=== PATIENT | female | born 2000 | race Two or more races ===

== ENCOUNTER 2023-09-05 10:13 | Emergency (ER) | payer MEDICAID ==
[~2023-09-05] VITALS: Ht 160 cm; Wt 54.7 kg
[2023-09-05 12:52] VITALS: BP 138/80; PULSE 80; RESP 16; TEMP 98.2; O2SAT 99
== END 2023-09-05 12:59 | disposition home or self-care (01) ==
LOC: ER 10:13
DX: S60.452A Superficial foreign body of right middle finger, initial encounter (principal); X58.XXXA Exposure to other specified factors, initial encounter; Y93.89 Activity, other specified; Y92.89 Other specified places as the place of occurrence of the external cause; Y99.8 Other external cause status

== ENCOUNTER 2024-02-01 14:48 | Emergency (ER) | payer OTHER, BC ==
[~2024-02-01] VITALS: Ht 160 cm; Wt 57.0 kg
[2024-02-01 16:09] VITALS: BP 105/48; PULSE 77; RESP 18; TEMP 99.3; O2SAT 99
[2024-02-01] MEDS: IBUPROFEN 600 MG TAB PO ONE (16:54)
[2024-02-01] MEDS ORDERED: IBUP1TAB5 PO (17:58)
[2024-02-01] MEDS ORDERED: CYCL-837 PO (17:58)
== END 2024-02-01 18:06 | disposition home or self-care (01) ==
LOC: ER 14:48
DX: S13.4XXA Sprain of ligaments of cervical spine, initial encounter (principal); S39.012A Strain of muscle, fascia and tendon of lower back, initial encounter; R19.00 Intra-abdominal and pelvic swelling, mass and lump, unspecified site; V49.9XXA Car occupant (driver) (passenger) injured in unspecified traffic accident, initial encounter; Y93.89 Activity, other specified; Y92.410 Unspecified street and highway as the place of occurrence of the external cause; Y99.8 Other external cause status
CPT/HCPCS: 72125; 72131